=== PATIENT | male | born 1990 | race Caucasian/White ===

== ENCOUNTER 2019-04-15 15:10 | Emergency (ER) | payer OTHER ==
[2019-04-15 15:26] VITALS: RESP 18; TEMP 99.3
[2019-04-15] MEDS ORDERED: ACETAMINOPHEN TAB 325 MG TAB PO STA (15:41)
[2019-04-15] MEDS ORDERED: IBUPROFEN 600 MG TAB PO STA (15:41)
--- NOTE | 2019-04-15 15:58 | XR ---
EXAMINATION TYPE: XR chest 2V DATE OF EXAM: 04/15/2019 COMPARISON: NONE HISTORY: Fever and cough TECHNIQUE: Frontal and lateral views of the chest are obtained. FINDINGS: There is no focal air space opacity, pleural effusion, or pneumothorax seen. The cardiac silhouette size is within normal limits. The osseous structures are intact. There is bronchial wall thickening. IMPRESSION: Correlate for bronchitis and follow-up as indicated
--- NOTE | 2019-04-15 16:25 | ED ---
General Adult HPI - General Chief complaint: Fever Stated complaint: Fever Time Seen by Provider: 04/15/19 15:27 Source: patient, RN notes reviewed, old records reviewed Mode of arrival: ambulatory Limitations: no limitations - History of Present Illness Initial comments: 28-year-old male patient followed vaccinated no pertinent past history presents to ED for chief complaint approximately 3 days of waxing waning nausea vomiting diarrhea, subjective fevers and chills, mild cough. Reports some mild sore throat, denies any other area of pain.. Denies any other complaints at this time. Denies any recent travel out of country, does report that he has had sick contacts. Systemic: Pt denies fatigue, fever/chills, rash. Pt denies weakness, night sweat s, weight loss. Neuro: Pt denies headache, visual disturbances, syncope or pre-syncope. HEENT: Pt denies ocular discharge or irritation, otalgia, rhinorrhea, pharyngitis or notable lymphadenopathy. Cardiopulmonary: Pt denies chest pain, SOB, heart palpitations, dyspnea on exertion. Abdominal/GI: Pt denies abdominal pain, n/v/d. : Pt denies dysuria, burning w/ urination, frequency/urgency. Denies new onset urinary or bowel incontinence. MSK: Pt denies myalgia, loss of strength or function in extremities. Neuro: Pt denies new onset weakness, paresthesias. - Related Data Previous Rx's Medication Instructions Recorded Albuterol Inhaler [Ventolin Hfa 1 - 2 puff INHALATION Q4-6H PRN #1 04/15/19 Inhaler] inhaler predniSONE 50 mg PO DAILY 4 Days #4 tab 04/15/19 Allergies Allergy/AdvReac Type Severity Reaction Status Date / Time No Known Allergies Allergy Verified 04/15/19 15:40 Review of Systems ROS Statement: Those systems with pertinent positive or pertinent negative responses have been documented in the HPI. ROS Other: All systems not noted in ROS Statement are negative. Past Medical History Past Medical History: No Reported History History of Any Multi-Drug Resistant Organisms: None Reported Past Surgical History: Ear Surgery Past Psychological History: No Psychological Hx Reported Smoking Status: Current every day smoker Past Alcohol Use History: Occasional Past Drug Use History: Marijuana General Exam - General Exam Comments Initial Comments: Constitutional: NAD, AOX3, Pt has pleasant affect. HEENT: NC/AT, trachea midline, neck supple, no lymphadenopathy. Posterior pharynx non erythematous, without exudates. External ears appear normal, without discharge. Mucous membranes moist. Eyes PERRLA, EOM intact. There is no scleral icterus. No pallor noted. Cardiopulmonary: RRR, no murmurs, rubs or gallops, no JVD noted. Lungs CTAB in anterior and posterior mendez. No peripheral edema. Abdominal exam: Abdomen soft and non-distended. Abdomen non-tender to palpation in all 4 quadrants. Bowel sounds active in LLQ. No hepatosplenomegaly. No ecchymosis Neuro: CN II-XII grossly intact. No nuchal rigidity. No raccon eyes, no wu sign, no hemotympanum. No cervical spinal tenderness. MSK: No posterior calf tenderness bilaterally, homans sign negative bilaterally. Posterior tibialis and radial pulse +2 bilaterally. Sensation intact in upper and lower extremities. Full active ROM in upper and lower extremities, 5/5 stregnth. Limitations: no limitations Course Vital Signs 04/15/19 15:19 Temperature 99.3 F Pulse Rate 109 H Respiratory 18 Rate Blood Pressure 150/84 O2 Sat by Pulse 99 Oximetry Medical Decision Making - Medical Decision Making 28-year-old male patient followed vaccinated no pertinent past history presents to ED for chief complaint approximately 3 days of waxing waning nausea vomiting diarrhea, subjective fevers and chills, mild cough. Reports some mild sore throat, denies any other area of pain.. Denies any other complaints at this time. Denies any recent travel out of country, does report that he has had sick contacts. Patient vital signs displayed mild tachycardia at 109. Physical exam displayed mild wheezing noted in right upper lobe in anterior lung field. Also mildly erythematous posterior pharynx without exudates. Laboratory investigations were obtained and revealed negative influenza, negative group A strep. Chest x-ray displayed bronchial wall thickening consistent with bronchitis. Patient is a smoker. Patient was counseled on smoking cessation. Denies any chest pain or sob. Pt was administered breathing treatment as well as steroids in the ED. Patient will be discharged with close patient follow-up with primary care provider will return to ER if condition worsens. Case discussed with Dr. Hurst. - Lab Data Lab Results 04/15/19 04/15/19 Range/Units 15:40 15:40 Influenza Type A RNA Not Detected (Not Detectd) Influenza Type B (PCR) Not Detected (Not Detectd) Group A Strep Rapid Negative (Negative) Disposition Clinical Impression: Bronchitis Disposition: HOME SELF-CARE Condition: Stable Instructions (If sedation given, give patient instructions): Acute Bronchitis (ED) Additional Instructions: Take steroids as directed. Use breathing treatments as needed. Follow up with primary care provider tomorrow. Return to ER if condition worsens in anyway. Prescriptions: predniSONE 50 mg PO DAILY 4 Days #4 tab Albuterol Inhaler [Ventolin Hfa Inhaler] 1 - 2 puff INHALATION Q4-6H PRN #1 inhaler PRN Reason: Cough Is patient prescribed a controlled substance at d/c from ED?: No Referrals: Nonstaff,Physician [REFERRING] - 1-2 days
[2019-04-15] MEDS ORDERED: IPRATROPIUM-ALBUTEROL 3 ML NEB INHALATION STA (16:36)
[2019-04-15] MEDS ORDERED: predniSONE 50 MG TAB PO STA (16:42)
--- NOTE | 2019-04-15 16:59 | ED ---
Medical Decision Making - Medical Decision Making Clarification physical exam: Constitutional: NAD, AOX3, Pt has pleasant affect. HEENT: NC/AT, trachea midline, neck supple, no lymphadenopathy. Posterior pharynx non erythematous, without exudates. External ears appear normal, without discharge. Mucous membranes moist. Eyes PERRLA, EOM intact. There is no scleral icterus. No pallor noted. Cardiopulmonary: RRR, no murmurs, rubs or gallops, no JVD noted. Mild wheezing noted in right upper lung field anterior aspect. All other lung mendez are clear to auscultation. Resolved after breathing tx. No peripheral edema. Abdominal exam: Abdomen soft and non-distended. Abdomen non-tender to palpation in all 4 quadrants. Bowel sounds active in LLQ. No hepatosplenomegaly. No ecchymosis Neuro: CN II-XII grossly intact. No nuchal rigidity. No raccon eyes, no wu sign, no hemotympanum. No cervical spinal tenderness. MSK: No posterior calf tenderness bilaterally, homans sign negative bilaterally. Posterior tibialis and radial pulse +2 bilaterally. Sensation intact in upper and lower extremities. Full active ROM in upper and lower extremities, 5/5 stregnth. - Lab Data Lab Results 04/15/19 04/15/19 Range/Units 15:40 15:40 Influenza Type A RNA Not Detected (Not Detectd) Influenza Type B (PCR) Not Detected (Not Detectd) Group A Strep Rapid Negative (Negative) Disposition Clinical Impression: Bronchitis Disposition: HOME SELF-CARE Condition: Stable Instructions (If sedation given, give patient instructions): Acute Bronchitis ( ED) Additional Instructions: Take steroids as directed. Use breathing treatments as needed. Follow up with primary care provider tomorrow. Return to ER if condition worsens in anyway. Prescriptions: predniSONE 50 mg PO DAILY 4 Days #4 tab Albuterol Inhaler [Ventolin Hfa Inhaler] 1 - 2 puff INHALATION Q4-6H PRN #1 inhaler PRN Reason: Cough Is patient prescribed a controlled substance at d/c from ED?: No Referrals: Nonstaff,Physician [REFERRING] - 1-2 days
[2019-04-15 17:22] VITALS: BP 135/79; PULSE 97
--- NOTE | 2019-04-17 04:24 | CDI ---
Dear Mane Cruz PA-C: Please do addendum duration of the counseling on smoking cessation. Thank you, Perla Alvarado, [employer]. If you have any questions, please contact [employer] at [phone]. [facility]
== END 2019-04-15 17:18 | disposition home or self-care (01) ==
LOC: EC 15:10
DX: J40 Bronchitis, not specified as acute or chronic (principal); R00.0 Tachycardia, unspecified; J02.9 Acute pharyngitis, unspecified; R11.2 Nausea with vomiting, unspecified; R19.7 Diarrhea, unspecified; Z71.6 Tobacco abuse counseling; F17.200 Nicotine dependence, unspecified, uncomplicated
CPT/HCPCS: 99284; 94640; 87081; 87430; 87502; 71046; J7512

== ENCOUNTER → 2019-10-29 | Outpatient (CLI) | payer OTHER ==
[2019-10-29 09:56] LABS: Basophils # (A) 0.1 k/uL (0-0.2); Basophils % (A) 1 %; Eosinophils # (A) 0.6 k/uL (0-0.7); Eosinophils % (A) 5 %; HCT 45.8 % (39.0-53.0); HGB 15.8 gm/dL (13.0-17.5); Lymphocytes # (A) 3.5 k/uL (1.0-4.8); Lymphocytes % (A) 29 %; MCH 32.2 pg (25.0-35.0); MCHC 34.4 g/dL (31.0-37.0); MCV 93.6 fL (80.0-100.0); Mean Platelet Volume 7.1; Monocytes # (A) 0.7 k/uL (0-1.0); Monocytes % (A) 6 %; Neutrophils # (A) 6.9 k/uL (1.3-7.7); Neutrophils % (A) 57 %; Platelet Count 332 k/uL (150-450); RBC 4.89 m/uL (4.30-5.90); RDW 12.1 % (11.5-15.5); WBC 12.1 k/uL (3.8-10.6)
[2019-10-29 17:13] LABS: African American GFR (CKD) 134.2 (60.0-200.0); Anion Gap 3.9 mmol/L (4.00-12.00); BUN/Creat Ratio 18.89 Ratio (12.00-20.00); Calcium 9.4 mg/dL (8.7-10.3); Carbon Dioxide 25.1 mmol/L (21.6-31.8); Chol/HDL Ratio 4.74; LDL Cholesterol,Calculated 126.2 mg/dL (0.0-131.0); Non-African American GFR(CKD) 115.8 (60.0-200.0); Potassium 4.7 mmol/L (3.5-5.5); VLDL Calculation 15.8 mg/dL (5.00-40.00)
--- NOTE | 2019-10-29 17:15 | XR ---
EXAMINATION TYPE: XR lumbosacral spine min 4V DATE OF EXAM: 10/29/2019 CLINICAL HISTORY: Numbness in right leg for several months. No injury. TECHNIQUE: Frontal, lateral, and oblique images of the lumbar spine are obtained. COMPARISON: None FINDINGS: There are 5 lumbar type vertebral bodies identified. The lumbar spine shows satisfactory alignment without evidence of acute fracture or dislocation. Vertebral body heights and disk space he ights are within normal limits. There is likely pars defect of L5 on the left. There is no evidence o f spondylolisthesis. Normal osseous mineralization. The overlying soft tissue appears unremarkable. IMPRESSION: 1. No acute fracture or dislocation is seen in the lumbar spine. 2. Likely left L5 pars defect with no evidence of spondylolisthesis.
== END | disposition home or self-care (01) ==
LOC: LABWHC1 09:11
PROVIDERS: ATTEND Nurse Practitioner Family
DX: M54.41 Lumbago with sciatica, right side (principal); R20.0 Anesthesia of skin; Z13.1 Encounter for screening for diabetes mellitus; Z13.220 Encounter for screening for lipoid disorders
CPT/HCPCS: 36415; 72110; 80048; 80061; 82607; 85025

== ENCOUNTER 2020-02-28 19:10 | Emergency (ER) | payer OTHER ==
[2020-02-28 19:22] VITALS: RESP 18
[2020-02-28] MEDS ORDERED: KETOROLAC 15 MG/ML 1 ML VIAL IVP STA (19:30)
--- NOTE | 2020-02-28 19:35 | ED ---
General Adult HPI - General Chief complaint: Chest Pain Stated complaint: chest pain Time Seen by Provider: 02/28/20 19:26 Source: patient, RN notes reviewed, old records reviewed Mode of arrival: ambulatory Limitations: no limitations - History of Present Illness Initial comments: 29-year-old male presented for evaluation of left-sided chest pain. Pain is on the left lateral chest, worse with deep inspiration. There is a mild associated dyspnea. No central chest pain. Pain does not radiate. It is pleuritic in nature. Patient reports only a mild cough. No fever. No lower leg pain or swelling. No abdominal pain nausea vomiting. Patient states the pain is been present for the past 4 days. - Related Data Previous Rx's Medication Instructions Recorded Ibuprofen [Motrin] 600 mg PO Q8HR PRN #24 tab 02/28/20 Allergies Allergy/AdvReac Type Severity Reaction Status Date / Time No Known Allergies Allergy Verified 02/28/20 20:07 Review of Systems ROS Statement: Those systems with pertinent positive or pertinent negative responses have been documented in the HPI. ROS Other: All systems not noted in ROS Statement are negative. Past Medical History Past Medical History: No Reported History History of Any Multi-Drug Resistant Organisms: None Reported Past Surgical History: Ear Surgery Past Psychological History: No Psychological Hx Reported Smoking Status: Current every day smoker Past Alcohol Use History: Occasional Past Drug Use History: Marijuana General Exam Limitations: no limitations General appearance: alert, in no apparent distress Head exam: Present: atraumatic, normocephalic Eye exam: Present: normal appearance, PERRL ENT exam: Present: normal exam Neck exam: Present: normal inspection. Absent: tenderness, meningismus Respiratory exam: Present: normal lung sounds bilaterally. Absent: respiratory distress, wheezes, rales, rhonchi Cardiovascular Exam: Present: regular rate, normal rhythm GI/Abdominal exam: Present: soft. Absent: distended, tenderness, guarding Extremities exam: Present: normal inspection, normal capillary refill. Absent: pedal edema, calf tenderness Neurological exam: Present: alert, oriented X3, CN II-XII intact, normal gait. Absent: motor sensory deficit Psychiatric exam: Present: normal affect, normal mood Skin exam: Present: warm, dry, intact. Absent: cyanosis, diaphoretic Course Vital Signs 02/28/20 19:19 Temperature 98.6 F Pulse Rate 81 Respiratory 18 Rate Blood Pressure 124/74 O2 Sat by Pulse 99 Oximetry EKG Findings - EKG Comments: EKG Findings:: EKG: Normal sinus rhythm, rate of 82, NJ interval 134, QRS duration 84, QTC 411, no ST segment elevation. Medical Decision Making - Medical Decision Making 29-year-old male presenting with left lateral chest pain pleuritic nature.. Patient well-appearing with stable vitals, no hypoxia, not tachycardic, stable blood pressure. Lungs are clear to auscultation. EKG is sinus without ischemic changes. Chest x-rays negative for focal pneumonia, no pneumothorax, no acute findings. Patient has a mild leukocytosis stable hemoglobin. He has normal electrolytes, normal kidney function, negative d-dimer, negative troponin. Pain is atypical, low suspicion for PE in the setting of normal vitals, negative d-dimer. Likely pleurisy. He will follow with his primary care physician, return with worsening or changing symptoms. - Lab Data Result diagrams: 02/28/20 19:36 02/28/20 19:36 Lab Results 02/28/20 02/28/20 02/28/20 Range/Units 19:36 19:36 19:36 WBC 12.8 H (3.8-10.6) k/uL RBC 4.96 (4.30-5.90) m/uL Hgb 16.1 (13.0-17.5) gm/dL Hct 45.8 (39.0-53.0) % MCV 92.2 (80.0-100.0) fL MCH 32.5 (25.0-35.0) pg MCHC 35.2 (31.0-37.0) g/dL RDW 11.7 (11.5-15.5) % Plt Count 316 (150-450) k/uL MPV 7.2 Neutrophils % 73 % Lymphocytes % 19 % Monocytes % 5 % Eosinophils % 1 % Basophils % 1 % Neutrophils # 9.3 H (1.3-7.7) k/uL Lymphocytes # 2.4 (1.0-4.8) k/uL Monocytes # 0.7 (0-1.0) k/uL Eosinophils # 0.1 (0-0.7) k/uL Basophils # 0.1 (0-0.2) k/uL PT 9.9 (9.0-12.0) sec INR 0.9 (<1.2) APTT 23.6 (22.0-30.0) sec D-Dimer 0.19 (<0.60) mg/L FEU Sodium 140 (137-145) mmol/L Potassium 4.8 (3.5-5.1) mmol/L Chloride 105 (98-107) mmol/L Carbon Dioxide 27 (22-30) mmol/L Anion Gap 8 mmol/L BUN 15 (9-20) mg/dL Creatinine 0.76 (0.66-1.25) mg/dL Est GFR (CKD-EPI)AfAm >90 (>60 ml/min/1.73 sqM) Est GFR (CKD-EPI)NonAf >90 (>60 ml/min/1.73 sqM) Glucose 128 H (74-99) mg/dL Calcium 10.0 (8.4-10.2) mg/dL Magnesium 1.9 (1.6-2.3) mg/dL Total Bilirubin 0.4 (0.2-1.3) mg/dL AST 20 (17-59) U/L ALT 20 (4-49) U/L Alkaline Phosphatase 39 (38-126) U/L Total Protein 7.7 (6.3-8.2) g/dL Albumin 4.9 (3.5-5.0) g/dL Disposition Clinical Impression: Atypical chest pain Disposition: HOME SELF-CARE Condition: Good Instructions (If sedation given, give patient instructions): Chest Pain (ED) Prescriptions: Ibuprofen [Motrin] 600 mg PO Q8HR PRN #24 tab PRN Reason: Pain Is patient prescribed a controlled substance at d/c from ED?: No Referrals: None,Stated [REFERRING] - 1-2 days Sebas Singh [STAFF PHYSICIAN] - 1-2 days Time of Disposition: 20:33
--- NOTE | 2020-02-28 19:48 | XR ---
EXAMINATION TYPE: XR chest 2V DATE OF EXAM: 02/28/2020 COMPARISON: NONE HISTORY: Chest pain. TECHNIQUE: Frontal and lateral views of the chest are obtained. FINDINGS: There is no focal air space opacity, pleural effusion, or pneumothorax seen. The cardiac silhouette size is within normal limits. The osseous structures are intact. IMPRESSION: No acute cardiopulmonary process.
[2020-02-28 19:52] LABS: Basophils # (A) 0.1 k/uL (0-0.2); Basophils % (A) 1 %; Eosinophils # (A) 0.1 k/uL (0-0.7); Eosinophils % (A) 1 %; HCT 45.8 % (39.0-53.0); HGB 16.1 gm/dL (13.0-17.5); Lymphocytes # (A) 2.4 k/uL (1.0-4.8); Lymphocytes % (A) 19 %; MCH 32.5 pg (25.0-35.0); MCHC 35.2 g/dL (31.0-37.0); MCV 92.2 fL (80.0-100.0); Mean Platelet Volume 7.2; Monocytes # (A) 0.7 k/uL (0-1.0); Monocytes % (A) 5 %; Neutrophils # (A) 9.3 k/uL (1.3-7.7); Neutrophils % (A) 73 %; Platelet Count 316 k/uL (150-450); RBC 4.96 m/uL (4.30-5.90); RDW 11.7 % (11.5-15.5); WBC 12.8 k/uL (3.8-10.6)
[2020-02-28 20:11] LABS: D-Dimer 0.19 mg/L FEU (<0.60); INR 0.9 (<1.2); Partial Thromboplastin Time 23.6 sec (22.0-30.0); Prothrombin Time 9.9 sec (9.0-12.0)
[2020-02-28 20:14] LABS: ALT 20 U/L (4-49); AST 20 U/L (17-59); African American GFR (CKD) >90 (>60 ml/min/1.73 sqM); Albumin 4.9 g/dL (3.5-5.0); Alkaline Phosphatase 39 U/L (38-126); Anion Gap 8 mmol/L; Blood Urea Nitrogen 15 mg/dL (9-20); Carbon Dioxide 27 mmol/L (22-30); Chloride 105 mmol/L (98-107); Glucose 128 mg/dL (74-99); Magnesium 1.9 mg/dL (1.6-2.3); Non-African American GFR(CKD) >90 (>60 ml/min/1.73 sqM); Potassium 4.8 mmol/L (3.5-5.1); Sodium 140 mmol/L (137-145); Total Bilirubin 0.4 mg/dL (0.2-1.3); Total Protein 7.7 g/dL (6.3-8.2)
[2020-02-28 20:56] VITALS: BP 126/80; PULSE 72; TEMP 98.3
== END 2020-02-28 20:55 | disposition home or self-care (01) ==
LOC: EC 19:10
DX: R07.89 Other chest pain (principal); R05 Cough; R06.00 Dyspnea, unspecified; F17.200 Nicotine dependence, unspecified, uncomplicated
CPT/HCPCS: 36415; 93005; 85379; 80053; 83735; 84484; 85025; 85610; 85730; 71046; 99285; 96374; J1885

== ENCOUNTER 2020-10-01 17:26 | Emergency (ER) | payer OTHER ==
[2020-10-01 17:29] VITALS: RESP 18; TEMP 98.3
--- NOTE | 2020-10-01 18:12 | ED ---
General Adult HPI - General Source: patient, RN notes reviewed Mode of arrival: ambulatory Limitations: no limitations <Hilario Lee - Last Filed: 10/01/20 19:15> <Radha Singleton - Last Filed: 10/02/20 23:34> - General Chief complaint: Extremity Injury, Lower Stated complaint: knee swelling Time Seen by Provider: 10/01/20 17:31 - History of Present Illness Initial comments: 29-year-old male presents to the emergency room for a chief complaint of right knee pain. Patient reports that he noticed this yesterday. He reports that he went to kick something yesterday and fell onto the ground. Patient states his knee hurt throughout the day and continued today. He denies fevers or chills. Patient does feel that it is swollen. Patient has no other complaints at this time including shortness of breath, chest pain, abdominal pain, nausea or vomiting, headache, or visual changes. (Hilario Lee) - Related Data Previous Rx's Medication Instructions Recorded Ibuprofen [Motrin] 600 mg PO Q8HR PRN #24 tab 02/28/20 Allergies Allergy/AdvReac Type Severity Reaction Status Date / Time No Known Allergies Allergy Verified 10/01/20 17:29 Review of Systems ROS Other: All systems not noted in ROS Statement are negative. <Hilario Lee - Last Filed: 10/01/20 19:15> ROS Other: All systems not noted in ROS Statement are negative. <Radha Singleton - Last Filed: 10/02/20 23:34> ROS Statement: Those systems with pertinent positive or pertinent negative responses have been documented in the HPI. Past Medical History Past Medical History: Asthma History of Any Multi-Drug Resistant Organisms: None Reported Past Surgical History: Ear Surgery Past Psychological History: No Psychological Hx Reported Smoking Status: Current every day smoker Past Alcohol Use History: Occasional Past Drug Use History: Marijuana <Hilario Lee - Last Filed: 10/01/20 19:15> General Exam Limitations: no limitations General appearance: alert, in no apparent distress Head exam: Present: atraumatic, normocephalic, normal inspection Eye exam: Present: normal appearance, PERRL, EOMI. Absent: scleral icterus, conjunctival injection, periorbital swelling ENT exam: Present: normal exam, mucous membranes moist Neck exam: Present: normal inspection, full ROM. Absent: tenderness, meningismus, lymphadenopathy Respiratory exam: Present: normal lung sounds bilaterally. Absent: respiratory distress, wheezes, rales, rhonchi, stridor Cardiovascular Exam: Present: regular rate, normal rhythm, normal heart sounds. Absent: systolic murmur, diastolic murmur, rubs, gallop, clicks Extremities exam: Present: tenderness (Anterior right knee tenderness.), normal capillary refill (Capillary refill less than 2 seconds, DP pulse 2+ right lower extremity.), joint swelling (Minimal edema anterior to the patella of the right knee.), other (NV status intact right lower extremity.). Absent: full ROM (Patient has about 45 flexion, extension to neutral position of the right knee.) <Hilario Lee - Last Filed: 10/01/20 19:15> Course Vital Signs 10/01/20 10/01/20 17:26 18:39 Temperature 98.3 F Pulse Rate 93 71 Respiratory 18 18 Rate Blood Pressure 126/65 108/66 O2 Sat by Pulse 100 96 Oximetry Medical Decision Making - Lab Data Result diagrams: 10/01/20 18:11 10/01/20 18:11 <Hilario Lee - Last Filed: 10/01/20 19:15> - Lab Data Result diagrams: 10/01/20 18:11 10/01/20 18:11 <Radha Singleton - Last Filed: 10/02/20 23:34> - Medical Decision Making Vitals are stable. Patient is afebrile. No history of fevers at home. Patient is a mild leukocytosis, likely inflammatory in nature. Labs are otherwise unremarkable. X-ray of the knee shows soft tissue swelling that could relate to particular bursitis. Given this happened after an injury suspect this is inflammatory in nature. Dr. Singleton also evaluated patient and agrees. I did discuss strict return parameters the patient which he is agreeable to. He will follow up with orthopedics as needed. (Hilario Lee) I was available for consultation in the emergency department. The history and physical exam were done by the midlevel provider. I was consulted for this patients care. I reviewed the case with the midlevel provider and evaluated the patient myself. I agree with the assessment, medical decision making and plan of care as documented. Chart was dictated using [employer] dictation software. Attempts were made to correct any dictation errors however some typographical errors may persist. (Radha Singleton) - Lab Data Lab Results 10/01/20 10/01/20 10/01/20 Range/Units 18:11 18:11 18:11 WBC 15.3 H (3.8-10.6) k/uL RBC 4.35 (4.30-5.90) m/uL Hgb 14.6 (13.0-17.5) gm/dL Hct 40.3 (39.0-53.0) % MCV 92.6 (80.0-100.0) fL MCH 33.5 (25.0-35.0) pg MCHC 36.2 (31.0-37.0) g/dL RDW 11.9 (11.5-15.5) % Plt Count 319 (150-450) k/uL MPV 7.0 Neutrophils % 73 % Lymphocytes % 16 % Monocytes % 5 % Eosinophils % 4 % Basophils % 0 % Neutrophils # 11.2 H (1.3-7.7) k/uL Lymphocytes # 2.5 (1.0-4.8) k/uL Monocytes # 0.8 (0-1.0) k/uL Eosinophils # 0.6 (0-0.7) k/uL Basophils # 0.1 (0-0.2) k/uL ESR 3 (0-15) mm/hr PT 10.1 (9.0-12.0) sec INR 0.9 (<1.2) APTT 21.4 L (22.0-30.0) sec Sodium 140 (137-145) mmol/L Potassium 4.2 (3.5-5.1) mmol/L Chloride 106 (98-107) mmol/L Carbon Dioxide 27 (22-30) mmol/L Anion Gap 7 mmol/L BUN 13 (9-20) mg/dL Creatinine 0.85 (0.66-1.25) mg/dL Est GFR (CKD-EPI)AfAm >90 (>60 ml/min/1.73 sqM) Est GFR (CKD-EPI)NonAf >90 (>60 ml/min/1.73 sqM) Glucose 106 H (74-99) mg/dL Plasma Lactic Acid Wild (0.7-2.0) mmol/L Calcium 9.4 (8.4-10.2) mg/dL Total Bilirubin 0.1 L (0.2-1.3) mg/dL AST 26 (17-59) U/L ALT 20 (4-49) U/L Alkaline Phosphatase 42 (38-126) U/L C-Reactive Protein 1.6 H (<1.0) mg/dL Total Protein 6.7 (6.3-8.2) g/dL Albumin 4.4 (3.5-5.0) g/dL 10/01/20 Range/Units 18:11 WBC (3.8-10.6) k/uL RBC (4.30-5.90) m/uL Hgb (13.0-17.5) gm/dL Hct (39.0-53.0) % MCV (80.0-100.0) fL MCH (25.0-35.0) pg MCHC (31.0-37.0) g/dL RDW (11.5-15.5) % Plt Count (150-450) k/uL MPV Neutrophils % % Lymphocytes % % Monocytes % % Eosinophils % % Basophils % % Neutrophils # (1.3-7.7) k/uL Lymphocytes # (1.0-4.8) k/uL Monocytes # (0-1.0) k/uL Eosinophils # (0-0.7) k/uL Basophils # (0-0.2) k/uL ESR (0-15) mm/hr PT (9.0-12.0) sec INR (<1.2) APTT (22.0-30.0) sec Sodium (137-145) mmol/L Potassium (3.5-5.1) mmol/L Chloride (98-107) mmol/L Carbon Dioxide (22-30) mmol/L Anion Gap mmol/L BUN (9-20) mg/dL Creatinine (0.66-1.25) mg/dL Est GFR (CKD-EPI)AfAm (>60 ml/min/1.73 sqM) Est GFR (CKD-EPI)NonAf (>60 ml/min/1.73 sqM) Glucose (74-99) mg/dL Plasma Lactic Acid Wild 1.3 (0.7-2.0) mmol/L Calcium (8.4-10.2) mg/dL Total Bilirubin (0.2-1.3) mg/dL AST (17-59) U/L ALT (4-49) U/L Alkaline Phosphatase (38-126) U/L C-Reactive Protein (<1.0) mg/dL Total Protein (6.3-8.2) g/dL Albumin (3.5-5.0) g/dL Disposition Is patient prescribed a controlled substance at d/c from ED?: No Time of Disposition: 19:16 <Hilario Lee - Last Filed: 10/01/20 19:15> <Radha Singleton - Last Filed: 10/02/20 23:34> Clinical Impression: Prepatellar bursitis, Knee pain Disposition: HOME SELF-CARE Condition: Good Instructions (If sedation given, give patient instructions): Knee Pain (ED) Additional Instructions: Take Motrin and Tylenol for pain. Rest ice and elevate the right knee. Follow- up with orthopedics by calling Saturday for an appointment. If you have worsening symptoms it is worsening swelling, spreading redness, or fevers return to the emergency room. Referrals: Mukul Palacios MD [Primary Care Provider] - 1-2 days Pollo Putnam DO [Doctor of Osteopathic Medicine] - 1-2 days
--- NOTE | 2020-10-01 18:18 | XR ---
EXAMINATION TYPE: XR knee complete RT DATE OF EXAM: 10/01/2020 COMPARISON: NONE HISTORY: Knee pain TECHNIQUE: 3 views FINDINGS: I see no fracture nor dislocation. Joint spaces are normal. There are no pathologic calcifi cations. There is soft tissue swelling anterior to the patella. IMPRESSION: Soft tissue swelling could relate to patella bursitis. No fracture seen..
[2020-10-01 18:30] LABS: Basophils # (A) 0.1 k/uL (0-0.2); Basophils % (A) 0 %; Eosinophils # (A) 0.6 k/uL (0-0.7); Eosinophils % (A) 4 %; HCT 40.3 % (39.0-53.0); HGB 14.6 gm/dL (13.0-17.5); Lymphocytes # (A) 2.5 k/uL (1.0-4.8); Lymphocytes % (A) 16 %; MCH 33.5 pg (25.0-35.0); MCHC 36.2 g/dL (31.0-37.0); MCV 92.6 fL (80.0-100.0); Monocytes # (A) 0.8 k/uL (0-1.0); Monocytes % (A) 5 %; Neutrophils # (A) 11.2 k/uL (1.3-7.7); Neutrophils % (A) 73 %; Platelet Count 319 k/uL (150-450); RBC 4.35 m/uL (4.30-5.90); RDW 11.9 % (11.5-15.5); WBC 15.3 k/uL (3.8-10.6)
[2020-10-01 18:42] VITALS: BP 108/66; PULSE 71
[2020-10-01 18:52] LABS: INR 0.9 (<1.2); Prothrombin Time 10.1 sec (9.0-12.0)
[2020-10-01 18:54] LABS: ALT 20 U/L (4-49); AST 26 U/L (17-59); African American GFR (CKD) >90 (>60 ml/min/1.73 sqM); Albumin 4.4 g/dL (3.5-5.0); Alkaline Phosphatase 42 U/L (38-126); Anion Gap 7 mmol/L; Blood Urea Nitrogen 13 mg/dL (9-20); C Reactive Protein 1.6 mg/dL (<1.0); Calcium 9.4 mg/dL (8.4-10.2); Carbon Dioxide 27 mmol/L (22-30); Chloride 106 mmol/L (98-107); Glucose 106 mg/dL (74-99); Non-African American GFR(CKD) >90 (>60 ml/min/1.73 sqM); Potassium 4.2 mmol/L (3.5-5.1); Sodium 140 mmol/L (137-145); Total Bilirubin 0.1 mg/dL (0.2-1.3); Total Protein 6.7 g/dL (6.3-8.2)
[2020-10-01 19:00] LABS: Partial Thromboplastin Time 21.4 sec (22.0-30.0)
[2020-10-01 19:16] LABS: Erythrocyte Sedimentation Rate 3 mm/hr (0-15)
== END 2020-10-01 19:25 | disposition home or self-care (01) ==
LOC: EC 17:26
DX: M70.41 Prepatellar bursitis, right knee (principal); J45.909 Unspecified asthma, uncomplicated; F17.200 Nicotine dependence, unspecified, uncomplicated; F12.90 Cannabis use, unspecified, uncomplicated; Y93.I9 Activity, other involving external motion
CPT/HCPCS: 36415; 80053; 83605; 85025; 85610; 85652; 85730; 86140; 87040; 99284